=== PATIENT | female | born 1965 | race Caucasian/White ===

== ENCOUNTER → 2017-01-17 | Outpatient (CLI) | payer OTHER ==
[~2017-01-17] VITALS: Ht 177.8 cm; Wt 108.9 kg
[~2017-01-17] MED LIST: ADVAIR 100/501 DISK IH; ADVAIR 250-501 EACH IH; ADVAIR 250/501 DISK IH; ALBUTEROL SULF8.5 GM IH; ALBUTEROL SULFAT2 MG PO; AMBIEN10 MG PO; AMITIZA24 MICROGR PO; ARTHRITIS PAIN650 M1 PO; AVENTYL,PAMELOR10 MG PO; AZITHROMYCIN250 MG1 PO; Advair 250/50 Diskus IH; Advair HFA 115/21 IH; Aspirin E.C. PO; BENADRYL25 MG PO; BENTYL10 MG PO; BUSPAR10 MG PO; BUSPAR15 MG PO; BUTALB-APAP-CA1 EACH PO; Bactrim,Septra Singl PO; CALAN SR,COVER180 MG PO; CEFTIN500 MG PO; CLONAZEPAM0.5 MG PO; CLONAZEPAM1 MG PO; CLONIDINE HCL0.1 MG PO; COLACE100 MG PO; COMBIVENT INH14.7 GM IH; COUMADIN2.5 MG PO; CYANOCOBALAM1000 MCG PO; CYCLOBENZAPRINE5 MG PO; Catapres PO; Combivent IH; DEPAKOTE500 MG PO; DICYCLOMINE HCL10 MG PO; DILAUDID2 MG PO; DILAUDID4 MG PO; DIVALPROEX SOD500 MG PO; DOXYCYCLINE MO100 MG PO; Depakene PO; Depakote PO; Diflucan PO; EFFEXOR XR150 MG PO; EFFEXOR XR75 MG PO; EFFEXOR75 MG PO; ESGIC 50-325-41 EAC1 PO; Effexor PO; FERROUS SULFAT325 MG PO; FIORICET,ESG1 TABLET; FIORICET,ESG1 TABLET PO; FLEXERIL10 MG PO; FLONASE ALLERG9.9 ML BOTH NARES; FLONASE16 G1 NS; Fioricet,Esgic,Repan PO; Flexeril PO; GENERLAC10 GM/15 M PO; HYDROCHLOROTH12.5 M3 PO; HYDROXYZINE HCL25 MG PO; HYOSCYAMINE0.125 MG PO; IMITREX100 MG PO; KLONOPIN0.5 M1 PO; KLONOPIN1 MG PO; KlonoPIN PO; LEVAQUIN750 MG PO; LISINOPRIL-HCT1 EACH PO; MOBIC7.5 MG PO; NORCO 5/3251 TABLET PO; NORCO 7.5/321 TABLET PO; NORTRIPTYLINE H10 MG; NYSTATIN15 GM TP; ONDANSETRON ODT4 MG PO; OXYCODONE H5 MG/5 ML PO; OXYCODONE HCL5 M1 PO; PHENTERMINE HCL30 MG PO; PRAVACHOL10 MG PO; PRAVACHOL80 MG PO; PRAVASTATIN SOD80 MG PO; PRINZIDE 10-121 EACH PO; PROAIR HFA8.5 GM IH; PROAIR RESPICL90 MCG IH; PROTONIX20 MG PO; PROVENTIL,2.5 MG/3 M IH; RANITIDINE HCL150 M1 PO; RANITIDINE HCL150 MG PO; REQUIP0.5 MG PO; ROPINIROLE HCL0.5 MG PO; SAVELLA50 MG PO; SIMVASTATIN40 MG PO; SINGULAIR10 MG PO; TEGRETOL-XR,CA100 MG PO; TEGRETOL100 MG PO; TOPAMAX100 MG PO; TOPIRAMATE100 MG PO; TOPIRAMATE25 MG PO; Topamax PO; VENLAFAXINE HCL75 M3 PO; VENLAFAXINE HCL75 MG PO; VERAPAMIL HCL80 MG PO; VERAPAMIL SR240 MG PO; VICODIN,LORT1 TABLET PO; VISTARIL25 MG PO; VITAMIN A8000 UNIT PO; VITAMIN B-1100 MG PO; VITAMIN B12 PO; VITAMIN B12-FO1 EACH PO; Vicodin,Norco 5/325 PO; Vitamin B1 PO; ZANTAC150 MG PO; ZOCOR10 M1 GT; ZOCOR40 MG PO; ZOFRAN4 MG PO; ZOLPIDEM TARTRA10 MG PO; ZOMIG; Zestoretic,Prinzide PO; Zocor PO; [UNRECOGNIZED DRUG - OTHER] PO; [UNRECOGNIZED DRUG - OTHER] PO
== END | disposition home or self-care (01) ==
LOC: AMB 13:51
DX: Z12.11 Encounter for screening for malignant neoplasm of colon (principal); D12.3 Benign neoplasm of transverse colon; K62.1 Rectal polyp; Z83.71 Family history of colonic polyps; T18.2XXA Foreign body in stomach, initial encounter; R10.13 Epigastric pain; K64.8 Other hemorrhoids; J45.909 Unspecified asthma, uncomplicated; G47.30 Sleep apnea, unspecified; F41.8 Other specified anxiety disorders; E66.9 Obesity, unspecified; Z68.35 Body mass index [BMI] 35.0-35.9, adult; E78.5 Hyperlipidemia, unspecified; Z87.891 Personal history of nicotine dependence; Z82.49 Family history of ischemic heart disease and other diseases of the circulatory system
CPT/HCPCS: 88305; 88342 TC; J1200; J2250; J3010

== ENCOUNTER 2017-01-20 17:42 | Emergency (ER) | payer OTHER ==
[~2017-01-20] VITALS: Ht 180.3 cm; Wt 66.2 kg
[2017-01-20 20:49] VITALS: BP 115/75
== END 2017-01-20 20:51 | disposition home or self-care (01) ==
LOC: EME 17:42
DX: F33.1 Major depressive disorder, recurrent, moderate (principal); M79.7 Fibromyalgia; E78.5 Hyperlipidemia, unspecified; I10 Essential (primary) hypertension; K21.9 Gastro-esophageal reflux disease without esophagitis; R56.9 Unspecified convulsions; Z87.891 Personal history of nicotine dependence
CPT/HCPCS: 90837; 99281; 99285

== ENCOUNTER 2017-09-14 15:56 | Emergency (ER) | payer OTHER ==
[~2017-09-14] VITALS: Ht 177.8 cm; Wt 118.0 kg
[2017-09-14 16:59] LABS: HEMATOCRIT 40.4 % (36.0-46.0); HEMOGLOBIN 13.2 G/DL (11.9-15.5); MCH 29.8 PG (29.0-34.0); MCHC 32.7 G/DL (30.0-36.0); MCV 91.2 FL (83-99); PLATELET COUNT 189 K/uL (156-360); RBC DIS.WIDTH-CV 14.2 % (11.8-14.6); RBC DIS.WIDTH-SD 47.6 % (39-53); RED BLOOD COUNT 4.43 M/uL (3.80-5.20); WHITE BLOOD COUNT 7.9 K/uL (4.1-10.2)
[2017-09-14 17:11] LABS: CHLORIDE 113 mEq/L (99-109); SODIUM 139 mEq/L (136-147)
[2017-09-14 17:13] LABS: GLUCOSE 81 mg/dL (70-99)
[2017-09-14 17:16] LABS: SERUM ETHYL ALCOHOL < 10 mg/dL
[2017-09-14 17:17] LABS: CREATININE 0.8 mg/dL (0.6-1.3); GFR ESTIMATE (CALCULATED) > 59 mL/min/; UREA NITROGEN (BUN) 19 mg/dL (9-23)
[2017-09-14 17:19] LABS: CREATINE KINASE 188 IU/L (1-294)
[2017-09-14 18:40] LABS: APPEARANCE CLEAR ((CLEAR)); BILIRUBIN NEGATIVE; BLOOD NEGATIVE; COLOR YELLOW ((YELLOW)); GLUCOSE (STRIP) NEGATIVE; KETONES NEGATIVE; LEUKOCYTES NEGATIVE; NITRITE NEGATIVE; PROTEIN (STRIP) NEGATIVE; SPECIFIC GRAVITY 1.014 (1.000-1.030); UROBILINOGEN 0.2 MG/DL (0.2-1.0)
[2017-09-14 18:42] LABS: AMPHETAMINE NEGATIVE (500 ng/mL); BARBITURATES NEGATIVE (200 ng/mL); BENZODIAZEPINES NEGATIVE (150 ng/mL); BUPRENORPHINE NEGATIVE (10 ng/mL); COCAINE NEGATIVE (150 ng/mL); METHADONE NEGATIVE (200 ng/mL); METHAMPHETAMINE NEGATIVE (500 ng/mL); OPIATES (MORPHINE) NEGATIVE (100 ng/mL); OXYCODONE NEGATIVE (100 ng/mL); PHENCYCLIDINE NEGATIVE (25 ng/mL); PROPOXYPHENE NEGATIVE (300 ng/mL); THC CANNABINOIDS NEGATIVE (50 ng/mL); TRICYCLIC ANTIDEPRESSANTS NEGATIVE (300 ng/mL)
[2017-09-14 21:44] VITALS: BP 116/83
== END 2017-09-14 21:46 | disposition home or self-care (01) ==
LOC: EME 15:56
PROVIDERS: Physician Assistant
DX: R56.9 Unspecified convulsions (principal); E86.0 Dehydration; M79.7 Fibromyalgia; K21.9 Gastro-esophageal reflux disease without esophagitis; I10 Essential (primary) hypertension; E78.5 Hyperlipidemia, unspecified; G43.909 Migraine, unspecified, not intractable, without status migrainosus; Z88.2 Allergy status to sulfonamides; Z88.5 Allergy status to narcotic agent; Z88.6 Allergy status to analgesic agent; Z87.891 Personal history of nicotine dependence
CPT/HCPCS: 80048; 81003; 82550; 85027; 99281; 99285; G0480; J1200; J1885; J2060; J2250; J7030

== ENCOUNTER 2017-09-17 13:37 | Emergency (ER) | payer OTHER ==
[~2017-09-17] VITALS: Ht 177.8 cm; Wt 118.4 kg
[2017-09-17 15:00] LABS: HEMATOCRIT 46.7 % (36.0-46.0); HEMOGLOBIN 15.1 G/DL (11.9-15.5); MCH 29.6 PG (29.0-34.0); MCHC 32.3 G/DL (30.0-36.0); MCV 91.6 FL (83-99); PLATELET COUNT 197 K/uL (156-360); RBC DIS.WIDTH-CV 14.3 % (11.8-14.6); RBC DIS.WIDTH-SD 48.4 % (39-53); WHITE BLOOD COUNT 7.7 K/uL (4.1-10.2)
[2017-09-17 15:14] LABS: ALBUMIN 4.5 g/dL (3.2-4.8); CHLORIDE 114 mEq/L (99-109); POTASSIUM 4.4 mEq/L (3.7-5.4); SODIUM 140 mEq/L (136-147)
[2017-09-17 15:16] LABS: GLUCOSE 84 mg/dL (70-99); TOTAL PROTEIN 7.6 g/dL (6.4-8.3)
[2017-09-17 15:18] LABS: TOTAL BILIRUBIN 0.5 mg/dL (0.0-1.0)
[2017-09-17 15:20] LABS: ALKALINE PHOSPHATASE 140 IU/L (3-129); CREATININE 0.9 mg/dL (0.6-1.3); GFR ESTIMATE (CALCULATED) > 59 mL/min/
[2017-09-17 15:21] LABS: UREA NITROGEN (BUN) 13 mg/dL (9-23)
[2017-09-17 15:22] LABS: AST (GOT) 23 IU/L (2-34)
[2017-09-17 15:23] LABS: ALT (GPT) 22 IU/L (3-49)
[2017-09-17 15:28] LABS: QUANTITATIVE HCG < 4.0 MIU/ML
[2017-09-17 16:20] LABS: LIPASE 19 U/L (1.0-51.0)
[2017-09-17 16:41] LABS: APPEARANCE CLEAR ((CLEAR)); BILIRUBIN NEGATIVE; BLOOD NEGATIVE; COLOR YELLOW ((YELLOW)); GLUCOSE (STRIP) NEGATIVE; KETONES NEGATIVE; LEUKOCYTES NEGATIVE; NITRITE NEGATIVE; PROTEIN (STRIP) NEGATIVE; SPECIFIC GRAVITY 1.017 (1.000-1.030); UCUL ADDED? NO; UROBILINOGEN 0.2 MG/DL (0.2-1.0)
[2017-09-17] MEDS ORDERED: CITRATE OF MAG296 ML PO (21:21)
[2017-09-17] MEDS ORDERED: ZOFRAN4 MG PO (21:21)
[2017-09-17 21:39] VITALS: BP 136/80
== END 2017-09-17 21:40 | disposition home or self-care (01) ==
LOC: EME 13:37
DX: K58.9 Irritable bowel syndrome, unspecified (principal); K59.00 Constipation, unspecified; R11.2 Nausea with vomiting, unspecified; Z98.84 Bariatric surgery status; M79.7 Fibromyalgia; K21.9 Gastro-esophageal reflux disease without esophagitis; I10 Essential (primary) hypertension; E78.5 Hyperlipidemia, unspecified; R56.9 Unspecified convulsions; F41.9 Anxiety disorder, unspecified; G43.909 Migraine, unspecified, not intractable, without status migrainosus; Z87.891 Personal history of nicotine dependence; Z88.2 Allergy status to sulfonamides; Z88.6 Allergy status to analgesic agent; Z88.5 Allergy status to narcotic agent
CPT/HCPCS: 74177; 80053; 81003; 83605; 83690; 84702; 85027; 99281; 99285; J0500; J2405; J3010

== ENCOUNTER 2017-09-29 14:30 | Emergency (ER) | payer OTHER ==
[~2017-09-29] VITALS: Ht 177.8 cm; Wt 112.7 kg
[~2017-09-29 14:30] MED LIST changes: +CITRATE OF MAG296 ML PO
[2017-09-29 15:17] LABS: HEMATOCRIT 42.5 % (36.0-46.0); HEMOGLOBIN 13.9 G/DL (11.9-15.5); MCH 29.6 PG (29.0-34.0); MCHC 32.7 G/DL (30.0-36.0); MCV 90.6 FL (83-99); PLATELET COUNT 164 K/uL (156-360); RBC DIS.WIDTH-CV 13.2 % (11.8-14.6); RED BLOOD COUNT 4.69 M/uL (3.80-5.20); WHITE BLOOD COUNT 6.3 K/uL (4.1-10.2)
[2017-09-29 15:28] LABS: ALBUMIN 3.6 g/dL (3.2-4.8); CHLORIDE 113 mEq/L (99-109); POTASSIUM 3.8 mEq/L (3.7-5.4); SODIUM 141 mEq/L (136-147)
[2017-09-29 15:31] LABS: GLUCOSE 82 mg/dL (70-99); TOTAL PROTEIN 6.7 g/dL (6.4-8.3)
[2017-09-29 15:33] LABS: TOTAL BILIRUBIN 0.8 mg/dL (0.0-1.0)
[2017-09-29 15:34] LABS: ALKALINE PHOSPHATASE 145 IU/L (3-129); CREATININE 0.9 mg/dL (0.6-1.3); GFR ESTIMATE (CALCULATED) > 59 mL/min/
[2017-09-29 15:35] LABS: UREA NITROGEN (BUN) 10 mg/dL (9-23)
[2017-09-29 15:36] LABS: AST (GOT) 19 IU/L (2-34)
[2017-09-29 15:37] LABS: ALT (GPT) 16 IU/L (3-49)
[2017-09-29 15:38] LABS: LIPASE 13 U/L (1.0-51.0)
[2017-09-29 15:44] LABS: QUANTITATIVE HCG < 4.0 MIU/ML
[2017-09-29 19:07] LABS: APPEARANCE SL.HAZY ((CLEAR)); BILIRUBIN NEGATIVE; BLOOD NEGATIVE; COLOR YELLOW ((YELLOW)); GLUCOSE (STRIP) NEGATIVE; KETONES NEGATIVE; LEUKOCYTES TRACE; NITRITE NEGATIVE; PROTEIN (STRIP) NEGATIVE; SPECIFIC GRAVITY 1.016 (1.000-1.030)
[2017-09-29 19:22] LABS: BACTERIA 1+ /HPF; EPITHELIAL CELLS 3+ /HPF; MUCUS TRACE /LPF; RED BLOOD CELLS 0-5 /HPF (0-5); UCUL ADDED? YES
[2017-09-29 20:41] VITALS: BP 141/95
== END 2017-09-29 20:42 | disposition home or self-care (01) ==
LOC: EME 14:30
DX: R10.30 Lower abdominal pain, unspecified (principal); R11.0 Nausea; J45.909 Unspecified asthma, uncomplicated; E78.5 Hyperlipidemia, unspecified; I10 Essential (primary) hypertension; Z98.84 Bariatric surgery status; M79.7 Fibromyalgia; K21.9 Gastro-esophageal reflux disease without esophagitis; R56.9 Unspecified convulsions; F32.9 Major depressive disorder, single episode, unspecified; F41.9 Anxiety disorder, unspecified; Z87.891 Personal history of nicotine dependence; Z88.2 Allergy status to sulfonamides; Z88.6 Allergy status to analgesic agent; Z88.5 Allergy status to narcotic agent
CPT/HCPCS: 74176; 80053; 81003; 83690; 84702; 85027; 87077; 87086; 87186; 99281; 99285

== ENCOUNTER → 2017-10-17 | Outpatient (CLI) | payer OTHER | END | disposition home or self-care (01) | LOC: NUC 08:52 | DX: R10.13 Epigastric pain (principal); K28.9 Gastrojejunal ulcer, unspecified as acute or chronic, without hemorrhage or perforation | CPT/HCPCS: 78227; A9537; J2805 ==

== ENCOUNTER 2018-02-09 08:42 | Emergency (ER) | payer OTHER ==
[~2018-02-09] VITALS: Ht 177.8 cm; Wt 114.5 kg
[2018-02-09 10:01] LABS: BASOPHIL (%) 1.1 % (0-1); BASOPHIL COUNT 0.1 K/uL (0-0.1); EOSINOPHIL (%) 1.8 % (0-5); EOSINOPHIL COUNT 0.1 K/uL (0-0.3); HEMATOCRIT 38.4 % (36.0-46.0); HEMOGLOBIN 12.4 G/DL (11.9-15.5); IMMATURE GRANULOCYTE (%) 0.3 % (0.0-0.7); LYMPHOCYTE (%) 26.2 % (15-42); LYMPHOCYTE COUNT 1.9 K/uL (1.0-2.8); MCH 30.7 PG (29.0-34.0); MCHC 32.3 G/DL (30.0-36.0); MONOCYTE (%) 7.5 % (3-12); MONOCYTE COUNT 0.6 K/uL (0-0.8); NEUTROPHIL (%) 63.1 % (45-76); NEUTROPHIL COUNT 4.7 K/uL (1.8-6.4); PLATELET COUNT 206 K/uL (156-360); RBC DIS.WIDTH-CV 14.2 % (11.8-14.6); RBC DIS.WIDTH-SD 49.9 % (39-53); RED BLOOD COUNT 4.04 M/uL (3.80-5.20); WHITE BLOOD COUNT 7.4 K/uL (4.1-10.2)
[2018-02-09 10:18] LABS: CHLORIDE 115 mEq/L (99-109); POTASSIUM 3.9 mEq/L (3.7-5.4); SODIUM 144 mEq/L (136-147)
[2018-02-09 10:19] LABS: GLUCOSE 64 mg/dL (70-99)
[2018-02-09 10:23] LABS: CREATININE 0.9 mg/dL (0.6-1.3); GFR ESTIMATE (CALCULATED) > 59 mL/min/
[2018-02-09 10:24] LABS: UREA NITROGEN (BUN) 15 mg/dL (9-23)
[2018-02-09 10:29] LABS: TROP-I INTERPRETATION NEGATIVE; TROPONIN-I < 0.01 ng/mL (0.0-0.30)
[2018-02-09 12:54] LABS: TROP-I INTERPRETATION NEGATIVE; TROPONIN-I < 0.01 ng/mL (0.0-0.30)
[2018-02-09] MEDS ORDERED: TORADOL10 MG PO (14:52)
[2018-02-09 15:21] VITALS: BP 117/81
== END 2018-02-09 15:34 | disposition home or self-care (01) ==
LOC: EME 08:42
PROVIDERS: Emergency Medicine
DX: R07.89 Other chest pain (principal); K21.9 Gastro-esophageal reflux disease without esophagitis; M79.7 Fibromyalgia; J45.909 Unspecified asthma, uncomplicated; I10 Essential (primary) hypertension; E78.5 Hyperlipidemia, unspecified; F41.9 Anxiety disorder, unspecified; F32.9 Major depressive disorder, single episode, unspecified; G43.909 Migraine, unspecified, not intractable, without status migrainosus; R56.9 Unspecified convulsions; Z87.891 Personal history of nicotine dependence; Z86.73 Personal history of transient ischemic attack (TIA), and cerebral infarction without residual deficits; Z98.84 Bariatric surgery status; Z96.652 Presence of left artificial knee joint; Z88.2 Allergy status to sulfonamides; Z88.6 Allergy status to analgesic agent; Z88.5 Allergy status to narcotic agent; Z88.1 Allergy status to other antibiotic agents
CPT/HCPCS: 71045; 80048; 84484; 85025; 93005; 99281; 99285; J1885

== ENCOUNTER 2018-04-04 14:06 | Emergency (ER) | payer OTHER ==
[~2018-04-04] VITALS: Ht 177.8 cm; Wt 115.9 kg
[~2018-04-04 14:06] MED LIST changes: +TORADOL10 MG PO
[2018-04-04 15:07] LABS: HEMATOCRIT 39.1 % (36.0-46.0); HEMOGLOBIN 12.6 G/DL (11.9-15.5); MCH 30.3 PG (29.0-34.0); MCHC 32.2 G/DL (30.0-36.0); PLATELET COUNT 223 K/uL (156-360); RBC DIS.WIDTH-CV 13.4 % (11.8-14.6); RBC DIS.WIDTH-SD 46.1 % (39-53); RED BLOOD COUNT 4.16 M/uL (3.80-5.20); WHITE BLOOD COUNT 8.3 K/uL (4.1-10.2)
[2018-04-04 15:20] LABS: ALBUMIN 3.8 g/dL (3.2-4.8); CHLORIDE 111 mEq/L (99-109); POTASSIUM 4.2 mEq/L (3.7-5.4)
[2018-04-04 15:21] LABS: SODIUM 139 mEq/L (136-147)
[2018-04-04 15:23] LABS: GLUCOSE 93 mg/dL (70-99); TOTAL PROTEIN 7.1 g/dL (6.4-8.3)
[2018-04-04 15:25] LABS: TOTAL BILIRUBIN 0.6 mg/dL (0.0-1.0)
[2018-04-04 15:26] LABS: ALKALINE PHOSPHATASE 114 IU/L (3-129); CREATININE 0.8 mg/dL (0.6-1.3); GFR ESTIMATE (CALCULATED) > 59 mL/min/
[2018-04-04 15:28] LABS: AST (GOT) 22 IU/L (2-34); UREA NITROGEN (BUN) 18 mg/dL (9-23)
[2018-04-04 15:29] LABS: ALT (GPT) 25 IU/L (3-49)
[2018-04-04 16:02] LABS: LIPASE 19 U/L (1.0-51.0)
[2018-04-04 17:05] LABS: APPEARANCE CLEAR ((CLEAR)); BILIRUBIN NEGATIVE; BLOOD NEGATIVE; COLOR YELLOW ((YELLOW)); GLUCOSE (STRIP) NEGATIVE; KETONES NEGATIVE; LEUKOCYTES NEGATIVE; NITRITE NEGATIVE; PROTEIN (STRIP) NEGATIVE; SPECIFIC GRAVITY 1.019 (1.000-1.030); UCUL ADDED? NO; UROBILINOGEN 0.2 MG/DL (0.2-1.0)
[2018-04-04] MEDS ORDERED: BENTYL20 MG PO (20:00)
[2018-04-04 20:21] VITALS: BP 132/82
== END 2018-04-04 20:21 | disposition home or self-care (01) ==
LOC: EME 14:06
DX: R10.31 Right lower quadrant pain (principal); R19.7 Diarrhea, unspecified; I10 Essential (primary) hypertension; Z98.84 Bariatric surgery status; Z90.710 Acquired absence of both cervix and uterus; Z90.722 Acquired absence of ovaries, bilateral; E78.5 Hyperlipidemia, unspecified; J45.909 Unspecified asthma, uncomplicated; Z88.2 Allergy status to sulfonamides; Z87.891 Personal history of nicotine dependence
CPT/HCPCS: 74177; 80053; 81003; 83690; 85027; 99281; 99284; J0500; J3010